=== PATIENT | male | born 1950 | race Caucasian/White ===

== ENCOUNTER 2017-05-24 14:42 | Emergency (ER) | payer OTHER, MEDICARE ==
--- NOTE | 2017-05-24 16:14 | ER Document Report ---
ED Medical Screen (RME) - General Chief Complaint: Constipation Stated Complaint: ABDOMINAL PAIN Time Seen by Provider: 05/24/17 16:11 Mode of Arrival: Ambulatory Information source: Patient Notes: 66-year-old male history of multiple hernias presents with complaints of constipation and impaction of stool I have greeted and performed a rapid initial assessment of this patient. A comprehensive ED assessment and evaluation of the patient, analysis of test results and completion of the medical decision making process will be conducted by additional ED providers. PHYSICAL EXAMINATION: GENERAL: Well-appearing, well-nourished and in no acute distress. HEAD: Atraumatic, normocephalic. EYES: Pupils equal round extraocular movements intact, conjunctiva are normal. ENT: Nares patent NECK: Normal range of motion LUNGS: No respiratory distress Musculoskeletal: Normal range of motion abdominal examination with multiple hernias Closson back NEUROLOGICAL: Normal speech, normal gait. PSYCH: Normal mood, normal affect. SKIN: Warm, Dry, normal turgor, no rashes or lesions noted. TRAVEL OUTSIDE OF THE [place] IN LAST 30 DAYS: No - Related Data Allergies/Adverse Reactions: Iodinated Contrast- Oral and IV Dye Allergy (Verified 05/24/17 14:52) meperidine [From Demerol] Allergy (Verified 05/24/17 14:52) Penicillins Allergy (Verified 05/24/17 14:52) Physical Exam - Vital signs Vitals: Temp Pulse Resp BP Pulse Ox 98.3 F 84 16 125/62 96 05/24/17 14:54 05/24/17 14:54 05/24/17 14:54 05/24/17 14:54 05/24/17 14:54 Course - Vital Signs Vital signs: Temp Pulse Resp BP Pulse Ox 98.3 F 84 16 125/62 96 05/24/17 14:54 05/24/17 14:54 05/24/17 14:54 05/24/17 14:54 05/24/17 14:54
--- NOTE | 2017-05-24 16:57 | RADIOLOGY REPORT (SQ) ---
EXAM DESCRIPTION: KUB/ABDOMEN (SINGLE VIEW) COMPLETED DATE/TIME: 05/24/2017 4:48 pm REASON FOR STUDY: constipation hernias COMPARISON: 02/16/2016. NUMBER OF VIEWS: One view. TECHNIQUE: Supine radiographic image of the abdomen acquired. LIMITATIONS: None. FINDINGS: BOWEL GAS PATTERN: Normal bowel gas pattern. No dilated loops. Prominent stool throughout . CALCIFICATIONS: 2 cm calcification in the right upper quadrant. SOFT TISSUES: No gross mass or suggestion of organomegaly. HARDWARE: Multiple surgical clips in the pelvis. BONES: No acute fracture. No worrisome bone lesions. OTHER: No other significant finding. IMPRESSION: NO RADIOGRAPHIC EVIDENCE FOR ACUTE ABDOMINAL DISEASE. 2 CM CALCIFICATION IN THE RIGHT U PPER QUADRANT, PROBABLY A GALLSTONE. PROMINENT STOOL THROUGHOUT THE COLON LIKELY INDICATES CONSTIPAT ION. TECHNICAL DOCUMENTATION: JOB ID: [id number] [employer]- All Rights Reserved
[2017-05-24] MEDS ORDERED: MINERAL OIL 30 ML UDCUP PR ONE (18:33)
--- NOTE | 2017-05-24 19:02 | ER Document Report ---
ED General - General Chief Complaint: Constipation Stated Complaint: ABDOMINAL PAIN Time Seen by Provider: 05/24/17 16:11 Mode of Arrival: Ambulatory Notes: Patient is a 66-year-old male who presents with concerns of not having had a bowel movement in almost a week. He denies any additional complaints including abdominal pain, vomiting, abdominal distention, fever, chest pain or shortness of breath. He reports that he has had chronic issues with constipation ever since having a bladder and prostate resection with an associated urostomy. He has not taken anything to treat his constipation does not normally take a standard bowel regimen. He denies any use of chronic pain medications. He has not seen his primary care doctor regarding today's concerns. Nothing seems to improve or worsen his symptoms. TRAVEL OUTSIDE OF THE [place] IN LAST 30 DAYS: No - Related Data Allergies/Adverse Reactions: Iodinated Contrast- Oral and IV Dye Allergy (Verified 05/24/17 14:52) meperidine [From Demerol] Allergy (Verified 05/24/17 14:52) Penicillins Allergy (Verified 05/24/17 14:52) Past Medical History - General Information source: Patient - Social History Smoking Status: Current Every Day Smoker Chew tobacco use (# tins/day): No Frequency of alcohol use: None Drug Abuse: Marijuana Lives with: Spouse/Significant other Family History: Reviewed & Not Pertinent Patient has suicidal ideation: No Patient has homicidal ideation: No - Past Medical History Cardiac Medical History: Reports: Hx Hypercholesterolemia, Hx Hypertension Pulmonary Medical History: Reports: Hx COPD Renal/ Medical History: Denies: Hx Peritoneal Dialysis Psychiatric Medical History: Reports: Hx Depression Past Surgical History: Reports: Hx Orthopedic Surgery - knees, femur Review of Systems - Review of Systems Notes: Constitutional: Negative for fever. HENT: Negative for sore throat. Eyes: Negative for visual changes. Cardiovascular: Negative for chest pain. Respiratory: Negative for shortness of breath. Gastrointestinal: Negative for abdominal pain, vomiting or diarrhea. Positive for constipation Genitourinary: Negative for dysuria. Musculoskeletal: Negative for back pain. Skin: Negative for rash. Neurological: Negative for headaches, weakness or numbness. 10 point ROS negative except as marked above and in HPI. Physical Exam - Vital signs Vitals: Temp Pulse Resp BP Pulse Ox 98.3 F 84 16 125/62 96 05/24/17 14:54 05/24/17 14:54 05/24/17 14:54 05/24/17 14:54 05/24/17 14:54 Interpretation: Normal Notes: PHYSICAL EXAMINATION: GENERAL: Well-appearing, well-nourished and in no acute distress. HEAD: Atraumatic, normocephalic. EYES: Pupils equal round and reactive to light, extraocular movements intact, sclera anicteric, conjunctiva are normal. ENT: nares patent, oropharynx clear without exudates. Moist mucous membranes. NECK: Normal range of motion, supple without lymphadenopathy LUNGS: Breath sounds clear to auscultation bilaterally and equal. No wheezes rales or rhonchi. HEART: Regular rate and rhythm without murmurs ABDOMEN: Soft, ventral hernia as well as urostomy bag noted, ventral hernia easily reduced. Nontender, normoactive bowel sounds. No guarding, no rebound. No masses appreciated. EXTREMITIES: Normal range of motion, no pitting or edema. No cyanosis. NEUROLOGICAL: No focal neurological deficits. Moves all extremities spontaneously and on command. PSYCH: Normal mood, normal affect. SKIN: Warm, Dry, normal turgor, no rashes or lesions noted. Course - Re-evaluation Re-evalutation: 05/24/17 18:59 Patient presents with 1 week without having a bowel movement, similar to issues he has had with regular constipation in the past. KUB does show extensive constipation without any evidence of free air or obstruction. The patient's clinical history does not suggest an acute bowel obstruction as he is having any vomiting, continues to pass stool and have flatus. Moreover he denies any abdominal pain. Abdominal examination is benign without any localized areas of tenderness or distention. He does have an easily reducible ventral hernia and denies any pain to the area. Based on his exam and history I do not suspect an acute appendicitis, mesenteric ischemia, acute bowel obstruction or biliary pathology. I have reviewed with the patient and his at the bedside at length the return precautions that would indicate a more serious pathology such as a bowel obstruction. We have provided an enema in the emergency department with some relief of his constipation. I have recommended a MiraLAX prep. At this time will discharge with return precautions and follow-up recommendations. Verbal discharge instructions given a the bedside and opportunity for questions given. Medication warnings reviewed. Patient is in agreement with this plan and has verbalized understanding of return precautions and the need for primary care follow-up in the next 24-72 hours. - Vital Signs Vital signs: Temp Pulse Resp BP Pulse Ox 98.2 F 88 18 122/60 98 05/24/17 23:31 05/24/17 23:31 05/24/17 23:31 05/24/17 23:31 05/24/17 23:31 - Diagnostic Test Radiology reviewed: Image reviewed, Reports reviewed Radiology results interpreted by me: 05/24/17 19:01 KUB: Extensive constipation Discharge - Discharge Clinical Impression: Constipation by delayed colonic transit, Decreased oral intake Condition: Good Disposition: HOME, SELF-CARE Additional Instructions: For your constipation: You should take 8 caps of MiraLAX and placed in 1 liter of Gatorade. Drink one half of the solution and wait 4 hours. If you do not have a bowel movement take the remaining half of the solution. You may repeat if you do not achieve success with the first prep. Please return if you develop abdominal pain, vomiting, fever, or any other symptoms that are worrisome to you
[2017-05-24] MEDS ORDERED: LACTULOSE SYRUP 20 GM/30 ML UDCUP PO ONE (22:09)
[2017-05-24 23:32] VITALS: BP 122/60
== END 2017-05-24 23:32 | disposition home or self-care (01) ==
LOC: ER 14:42
DX: K59.01 Slow transit constipation (principal); R63.0 Anorexia; R10.9 Unspecified abdominal pain; R11.10 Vomiting, unspecified; R14.0 Abdominal distension (gaseous); F17.200 Nicotine dependence, unspecified, uncomplicated
CPT/HCPCS: 74018; 99283

== ENCOUNTER 2018-03-15 09:22 | Emergency (ER) | payer OTHER, MEDICARE ==
[2018-03-15 10:16] LABS: ABSOLUTE EOSINOPHILS # (AUTO) 0.1 10^3/uL (0.0-0.6); ABSOLUTE LYMPHOCYTES (AUTO) 1.1 10^3/uL (0.5-4.7); ABSOLUTE MONOCYTES (AUTO) 0.5 10^3/uL (0.1-1.4); ABSOLUTE NEUT (AUTO) 11.3 10^3/uL (1.7-8.2); BASOPHILS % (AUTO) 0.3 % (0-2); EOSINOPHILS % (AUTO) 0.8 % (0-6); HEMATOCRIT 41.6 % (37.9-51.0); HEMOGLOBIN 14.4 g/dL (13.5-17.0); LYMPHOCYTES % (AUTO) 8.4 % (13-45); MEAN CORPUSCULAR HEMOGLOBIN 34.5 pg (27.0-33.4); MEAN CORPUSCULAR HGB CONC 34.6 g/dL (32.0-36.0); MEAN CORPUSCULAR VOLUME 100 fl (80-97); MONOCYTES % (AUTO) 3.7 % (3-13); PLATELET COUNT 213 10^3/uL (150-450); RED BLOOD COUNT 4.17 10^6/uL (4.35-5.55); RED CELL DISTRIBUTION WIDTH 13.5 % (11.5-14.0); SEGMENTED NEUTROPHILS % (AUTO) 86.8 % (42-78); TOTAL CELLS COUNTED % (AUTO) 100 %
--- NOTE | 2018-03-15 10:20 | ER Document Report ---
ED General - General Chief Complaint: Abdominal Pain >50 Stated Complaint: ABDOMINAL PAIN Time Seen by Provider: 03/15/18 09:30 Mode of Arrival: Medic Information source: Patient Notes: Patient reports constipation symptoms for the past week. Patient was at home today trying to give himself an enema and started to get diaphoretic and lost his balance. Not lose consciousness and did not suffer any injury. Patient complains of lower pelvic pain that he attributes to his constipation symptoms. Patient does complain of nausea but denies any vomiting. Patient denies any fever. Patient states last bowel movement was last week. Patient states he has had similar problems in the past whenever he had an impaction. Patient suspects the same today. TRAVEL OUTSIDE OF THE [place] IN LAST 30 DAYS: No - HPI Onset: Last week Onset/Duration: Worse Quality of pain: Cramping Pain Level: 3 Associated symptoms: Nausea, Sweating. denies: Chest pain, Nonproductive cough , Productive cough, Diarrhea, Fever, Vomiting Exacerbated by: Denies Relieved by: Denies Similar symptoms previously: Yes Recently seen / treated by doctor: No - Related Data Allergies/Adverse Reactions: Iodinated Contrast- Oral and IV Dye Allergy (Verified 05/24/17 14:52) meperidine [From Demerol] Allergy (Verified 05/24/17 14:52) Penicillins Allergy (Verified 05/24/17 14:52) Past Medical History - General Information source: Patient - Social History Smoking Status: Current Every Day Smoker Smoking Education Provided: Yes Frequency of alcohol use: Occasional Drug Abuse: None Lives with: Spouse/Significant other Family History: Reviewed & Not Pertinent - Past Medical History Cardiac Medical History: Reports: Hx Hypercholesterolemia, Hx Hypertension, Other - Abdominal aortic aneurysm, pt reports 6 cm Pulmonary Medical History: Reports: Hx COPD Renal/ Medical History: Denies: Hx Peritoneal Dialysis Psychiatric Medical History: Reports: Hx Depression Infectious Medical History: Reports: Hx Hepatitis, Hx HIV Past Surgical History: Reports: Hx Abdominal Surgery, Hx Inguinal Hernia, Hx Orthopedic Surgery - knees, femur, Hx Urostomy, Other - Prostate resection Review of Systems - Review of Systems Constitutional: Diaphoresis. denies: Fever, Recent illness EENT: No symptoms reported Cardiovascular: Lightheaded. denies: Chest pain Respiratory: No symptoms reported. denies: Cough, Short of breath Gastrointestinal: Abdominal pain, Nausea, Constipation, Last bowel movement - 1 week ago. denies: Diarrhea, Vomiting, Poor appetite Genitourinary: No symptoms reported Male Genitourinary: No symptoms reported Musculoskeletal: No symptoms reported. denies: Back pain Skin: No symptoms reported Hematologic/Lymphatic: No symptoms reported Neurological/Psychological: No symptoms reported. denies: Lost consciousness, Headaches Physical Exam - Vital signs Vitals: Resp BP Pulse Ox 15 105/61 93 03/15/18 09:28 03/15/18 09:28 03/15/18 09:28 - General General appearance: Other - Drowsy, arouses easily to voice In distress: Mild - HEENT Head: Normocephalic, Atraumatic Eyes: Normal Nasal: Normal Mouth/Lips: Normal Mucous membranes: Normal Neck: Normal, Supple - Respiratory Respiratory status: No respiratory distress Chest status: Nontender Breath sounds: Normal. No: Rales, Rhonchi, Stridor, Wheezing Chest palpation: Normal - Cardiovascular Rhythm: Regular Heart sounds: S1 appreciated, S2 appreciated Murmur: No - Abdominal Inspection: Other - Large ventral hernia, large firm, left inguinal hernia, urostomy with yellow urine to bag Distension: Other - Reducible ventral hernia, nonreducible left inguinal hernia Bowel sounds: Hypoactive Tenderness: Tender - Tenderness to bilateral inguinal areas. No: McBurney's point, Mcdermott's sign, Guarding - Back Back: Normal, Nontender. No: CVA tenderness - Extremities General upper extremity: Normal inspection, Normal ROM General lower extremity: Normal inspection, Normal ROM - Neurological Neuro grossly intact: Yes Gio Coma Scale Eye Opening: Spontaneous [place] Coma Scale Verbal: Oriented Gio Coma Scale Motor: Obeys Commands [place] Coma Scale Total: 15 - Psychological Associated symptoms: Normal affect - Skin Skin Temperature: Warm Skin Moisture: Dry Skin Color: Normal Course - Re-evaluation Re-evalutation: 03/15/18 10:18 Patient does have a known abdominal aortic aneurysm. Patient reported the aneurysm was 6 cm. Patient states that the [facility] is monitoring his aneurysm. Consulted with Dr. Modesto Lockhart to bedside for examination. Bedside ultrasound performed. Recommends a noncontrast CT scan of the abdomen and pelvis, as well as eventual consultation with surgery 03/15/18 12:[address] Brown regarding patient CT scan report. Recommends giving patient GoLYTELY prep as well as enema likely outpatient GI follow-up. No concern for incarcerated hernia at this time. Dr. Brown did review patient's CT images. 03/15/18 15:40 Patient without any bowel movement. Provider to bedside attempted manual disimpaction, few small hard balls of stool removed. Patient requesting enema be continued at this time. Provider finished the enema, patient was unable to obtain fluid. Patient is sitting on a bedside commode. RN updated regarding patient status. 03/15/18 17:24 RN at bedside attempting repeat enema after divider had removed several hard formed stools digitally. 03/15/18 18:26 Provider removed a few more hard formed stools digitally. Patient's inguinal hernia does feel softer at this time and is smaller in size. Patient denies any nausea or vomiting. Patient encouraged to take sips of the GoLYTELY prep at bedside. Patient declines any additional digital rectal. Patient offered discharge so that he can go home and continue to drink the prep. Patient declines stating that he is willing to have an additional enema performed. RN advised. 03/15/18 18:[address] Allen regarding patient disposition. Agrees with discharge plan of care at this time, no additional tests advised. Advises having patient return for any vomiting, or any concerning symptoms. Patient has findings worrisome for possible UTI, will culture urine and cover with antibiotics pending urine culture results at this time. 03/15/18 19:08 Patient reports that he has had additional stool out after the last enema. Patient feels that he can manage his symptoms at home. Discussed worsening symptoms that patient should return medially for. Patient verbalized understanding and agrees with plan of care. Patient advised of concern about UTI and that a urine culture is pending. Patient states that he will have to arrange a ride with his . Bedside report and handoff given to Dunia Rey COMMUNICATIONS DEPARTMENT CHAIR. - Vital Signs Vital signs: Temp Pulse Resp BP Pulse Ox 16 113/62 99 03/15/18 18:01 03/15/18 18:00 03/15/18 18:01 - Laboratory Result Diagrams: 03/15/18 09:46 03/15/18 09:46 Laboratory results interpreted by me: 03/15/18 03/15/18 03/15/18 09:46 09:46 12:45 WBC 13.0 H RBC 4.17 L MCV 100 H MCH 34.5 H Seg Neutrophils % 86.8 H Lymphocytes % 8.4 L Absolute Neutrophils 11.3 H Chloride 109 H Carbon Dioxide 20 L BUN 36 H Creatinine 2.51 H Est GFR ( Amer) 31 L Est GFR (Non-Af Amer) 26 L Glucose 129 H Direct Bilirubin 0.5 H ALT 15 L Urine Blood SMALL H Urine Urobilinogen 4.0 H Ur Leukocyte Esterase MODERATE H 03/15/18 18:36 Labs- Entire Visit 03/15/18 03/15/18 03/15/18 09:46 09:46 09:46 WBC 13.0 H RBC 4.17 L Hgb 14.4 Hct 41.6 MCV 100 H MCH 34.5 H MCHC 34.6 RDW 13.5 Plt Count 213 Seg Neutrophils % 86.8 H Lymphocytes % 8.4 L Monocytes % 3.7 Eosinophils % 0.8 Basophils % 0.3 Absolute Neutrophils 11.3 H Absolute Lymphocytes 1.1 Absolute Monocytes 0.5 Absolute Eosinophils 0.1 Absolute Basophils 0.0 Sodium 141.4 Potassium 4.3 Chloride 109 H Carbon Dioxide 20 L Anion Gap 12 BUN 36 H Creatinine 2.51 H Est GFR ( Amer) 31 L Est GFR (Non-Af Amer) 26 L Glucose 129 H Lactic Acid Calcium 8.7 Magnesium 2.3 Total Bilirubin 0.9 Direct Bilirubin 0.5 H Neonat Total Bilirubin Not Reportable Neonat Direct Bilirubin Not Reportable Neonat Indirect Bili Not Reportable AST 24 ALT 15 L Alkaline Phosphatase 91 Creatine Kinase 70 CK-MB (CK-2) 1.49 Troponin I < 0.012 Total Protein 6.5 Albumin 3.5 Urine Color Urine Appearance Urine pH Ur Specific Jupiter Urine Protein Urine Glucose (UA) Urine Ketones Urine Blood Urine Nitrite Urine Bilirubin Urine Urobilinogen Ur Leukocyte Esterase Urine WBC (Auto) Urine RBC (Auto) Squamous Epi Cells Auto Urine Mucus (Auto) Urine Ascorbic Acid 03/15/18 03/15/18 03/15/18 09:46 12:45 13:51 WBC RBC Hgb Hct MCV MCH MCHC RDW Plt Count Seg Neutrophils % Lymphocytes % Monocytes % Eosinophils % Basophils % Absolute Neutrophils Absolute Lymphocytes Absolute Monocytes Absolute Eosinophils Absolute Basophils Sodium Potassium Chloride Carbon Dioxide Anion Gap BUN Creatinine Est GFR ( Amer) Est GFR (Non-Af Amer) Glucose Lactic Acid 1.3 Calcium Magnesium Total Bilirubin Direct Bilirubin Neonat Total Bilirubin Neonat Direct Bilirubin Neonat Indirect Bili AST ALT Alkaline Phosphatase Creatine Kinase CK-MB (CK-2) Troponin I 0.018 Total Protein Albumin Urine Color LOTTIE Urine Appearance SLIGHTLY-CLOUDY Urine pH 5.0 Ur Specific Jupiter 1.010 Urine Protein NEGATIVE Urine Glucose (UA) NEGATIVE Urine Ketones NEGATIVE Urine Blood SMALL H Urine Nitrite NEGATIVE Urine Bilirubin NEGATIVE Urine Urobilinogen 4.0 H Ur Leukocyte Esterase MODERATE H Urine WBC (Auto) 17 Urine RBC (Auto) 1 Squamous Epi Cells Auto <1 Urine Mucus (Auto) RARE Urine Ascorbic Acid NEGATIVE - Diagnostic Test Radiology reviewed: Image reviewed, Reports reviewed Discharge - Discharge Clinical Impression: Impacted stool in rectum Constipation Qualifiers: Constipation type: unspecified constipation type Qualified Code(s): K59.00 - Constipation, unspecified UTI (urinary tract infection) Qualifiers: Urinary tract infection type: site unspecified Hematuria presence: with hematuria Qualified Code(s): N39.0 - Urinary tract infection, site not specified Condition: Stable Disposition: HOME, SELF-CARE Instructions: Abdominal Pain ([facility]), Constipation ([facility]), Hernia ([facility]), Urinary Tract Infection ([facility]) Additional Instructions: Return immediately for any new or worsening symptoms Followup with your primary care provider, call tomorrow to make a followup appointment Continue to drink the GoLYTELY prep at home until finished Follow-up with the [facility] Saturday for recheck. Return for any vomiting, increased pain or any concerning symptoms. Prescriptions: Ciprofloxacin HCl [Cipro 500 mg Tablet] 500 mg PO BID #14 tablet Forms: Smoking Cessation Education Referrals: [facility] [Provider Group] - 03/17/18
[2018-03-15 10:34] LABS: ALANINE AMINOTRANSFERASE 15 U/L (21-72); ALBUMIN 3.5 g/dL (3.5-5.0); ALKALINE PHOSPHATASE 91 U/L (38-126); ANION GAP 12 (5-19); ASPARTATE AMINO TRANSFERASE 24 U/L (17-59); BILIRUBIN,DIRECT 0.5 mg/dL (0.0-0.4); BILIRUBIN,TOTAL 0.9 mg/dL (0.2-1.3); BLOOD UREA NITROGEN 36 mg/dL (7-20); CALCIUM 8.7 mg/dL (8.4-10.2); CARBON DIOXIDE 20 mmol/L (22-30); CHLORIDE 109 mmol/L (98-107); CREATINE KINASE 70 U/L (55-170); GLUCOSE 129 mg/dL (75-110); POTASSIUM 4.3 mmol/L (3.6-5.0); SODIUM 141.4 mmol/L (137-145); TOTAL PROTEIN 6.5 g/dL (6.3-8.2)
[2018-03-15 10:49] LABS: CREATINE KINASE MB 1.49 ng/mL (<4.55)
[2018-03-15 10:51] LABS: TROPONIN I < 0.012 ng/mL
--- NOTE | 2018-03-15 11:11 | RADIOLOGY REPORT (SQ) ---
EXAM DESCRIPTION: CT ABD/PELVIS NO ORAL OR IV COMPLETED DATE/TIME: 03/15/2018 10:33 am REASON FOR STUDY: Constipation,nonreduc L ing hernia,AAA,near syncop COMPARISON: None. TECHNIQUE: CT scan of the abdomen and pelvis performed without intravenous or oral contrast. Images reviewed with lung, soft tissue, and bone windows. Reconstructed coronal and sagittal MPR images revi ewed. All images stored on PACS. All CT scanners at this facility use dose modulation, iterative reconstruction, and/or weight based d osing when appropriate to reduce radiation dose to as low as reasonably achievable (ALARA). [facility]: Dose Right [facility]: CareDose [facility]: Dose Right [facility]: Teradose 4D [facility]: SmartSignal RADIATION DOSE: CT Rad equipment meets quality standard of care and radiation dose reduction techniq ues were employed. CTDIvol: 11.2 mGy. DLP: 642 mGy-cm.mGy. LIMITATIONS: None. FINDINGS: LOWER CHEST: Atelectasis of the visualized lung bases which are otherwise clear. NON-CONTRASTED LIVER, SPLEEN, ADRENALS: Evaluation limited by lack of IV contrast. No identified sign ificant masses. PANCREAS: No masses. No peripancreatic inflammatory changes. GALLBLADDER: Gallstones. No inflammatory changes to suggest cholecystitis. RIGHT KIDNEY AND URETER: No suspicious masses. Simple right-sided renal cyst. Assessment limited by lack of IV contrast. No significant calcifications. Mild hydronephrosis. LEFT KIDNEY AND URETER: No suspicious masses. Assessment limited by lack of IV contrast. No signifi cant calcifications. Mild hydronephrosis. AORTA AND RETROPERITONEUM: Infrarenal abdominal aortic aneurysm measuring 5.0 cm in AP diameter. Josemanuel cified plaque of the aortoiliac system. BOWEL AND PERITONEAL CAVITY: Supraumbilical hernia containing nondilated transverse colon. A left in guinal hernia containing a nondilated sigmoid colon. No dilated loops of large or small bowel. Mode rate stool burden. No free fluid or intraperitoneal free air appear APPENDIX: Not visualized. PELVIS, BLADDER, AND ABDOMINAL WALL:Urinary bladder is surgically absent. Distal ureters terminate t o a catheter within the pelvis. Catheter continues down the left inguinal area to a penile prosthesi s. Multiple metallic clips within the pelvis. Small hernia of the right mid abdomen. No pelvic larry e fluid. BONES: Mild degenerative disc disease of the lumbar spine OTHER: No other significant finding. IMPRESSION: 1. Infrarenal abdominal aortic aneurysm measuring 5.0 cm in AP diameter. Vascular surgical consultat ion is recommended. 2. Supraumbilical and left inguinal hernia both containing nondilated colon. Moderate stool burden. 3. Cholelithiasis. 4. Mild bilateral hydronephrosis, likely physiologic given the surgical absence of the urinary bladde r and additional postsurgical changes. COMMENT: Quality ID # [id number]: Final reports with documentation of one or more dose reduction techniques (e.g., Automated exposure control, adjustment of the mA and/or kV according to patient size, use of iterative reconstruction technique) TECHNICAL DOCUMENTATION: JOB ID: [id number] [employer]- All Rights Reserved Reading location - IP/workstation name: [email or web address]
[2018-03-15] MEDS ORDERED: MINERAL OIL 30 ML UDCUP PR ONE (11:58)
[2018-03-15] MEDS ORDERED: PEG 3350/NA SULF,BICARB,CL/KCL 4000 ML PO ONE (11:58)
[2018-03-15] MEDS ORDERED: NORMAL SALINE 1000 ML 1,000 ML IV ONE (12:00)
--- NOTE | 2018-03-15 14:19 | EKG REPORT ---
SEVERITY:- ABNORMAL ECG - SINUS RHYTHM PROBABLE ANTEROSEPTAL INFARCT, OLD : Confirmed by: Phan Le 15-Mar-2018 14:19:10
[2018-03-15] MEDS ORDERED: NORMAL SALINE 1000 ML 1,000 ML IV PRN ×2 (14:34→15:40)
[2018-03-15 16:23] LABS: APPEARANCE,URINE SLIGHTLY-CLOUDY; BILIRUBIN,URINE NEGATIVE (NEGATIVE); COLOR,URINE AMBER; GLUCOSE, URINE NEGATIVE (NEGATIVE); KETONES,URINE NEGATIVE (NEGATIVE); LEUKOCYTE ESTERASE,URINE MODERATE (NEGATIVE); NITRITE,URINE NEGATIVE (NEGATIVE); PROTEIN,URINE NEGATIVE (NEGATIVE)
[2018-03-15] MEDS ORDERED: DIAZEPAM INJ 10 MG/2 ML DISP.SYRIN IV ONE (16:24)
[2018-03-15] MEDS ORDERED: CIPROFLOXACIN HCL 500 MG TABLET PO ONE (18:47)
[2018-03-15 19:36] VITALS: BP 115/64
== END 2018-03-15 19:35 | disposition home or self-care (01) ==
LOC: ER 09:22
DX: K59.00 Constipation, unspecified (principal); N39.0 Urinary tract infection, site not specified; R31.9 Hematuria, unspecified; K43.9 Ventral hernia without obstruction or gangrene; K40.90 Unilateral inguinal hernia, without obstruction or gangrene, not specified as recurrent; I71.4 Abdominal aortic aneurysm, without rupture; R61 Generalized hyperhidrosis; R10.2 Pelvic and perineal pain; R11.0 Nausea; R42 Dizziness and giddiness; F17.200 Nicotine dependence, unspecified, uncomplicated; I10 Essential (primary) hypertension; J44.9 Chronic obstructive pulmonary disease, unspecified; Z93.6 Other artificial openings of urinary tract status; Z21 Asymptomatic human immunodeficiency virus [HIV] infection status; Z91.041 Radiographic dye allergy status; Z88.5 Allergy status to narcotic agent; Z88.0 Allergy status to penicillin
CPT/HCPCS: 93005; 99285; 96361; 96374; 36415; 87086; 82553; 82550; 83605; 83735; 85025; 80053; 81001; 84484; 74176; 93010; J3360; J3490 ×2; J7030